=== PATIENT | male | born 1960 | race Caucasian/White ===

== ENCOUNTER 2021-03-22 17:07 | Inpatient (IN) | payer SELFPAY ==
[~2021-03-22] VITALS: Ht 185.4 cm; Wt 113.0 kg
[~2021-03-22 17:07] MED LIST: AMLO2.5T2 PO; CHLO25TA9 PO; FENO48TA16 PO; FENT1PAT17 TP; GABA-585 PO; LISI20TA18 PO; MORP15TA80 PO; POTA99TA PO; PROP1TAB PO
[2021-03-22 17:20] VITALS: BP 175/132
[2021-03-22] MEDS ORDERED: MORPHINE SULFATE 4 MG/ML DISP.SYRIN. IM ONE (17:30)
[2021-03-22] MEDS ORDERED: VANCOMYCIN PER PHARMACY MC PRN (17:45)
[2021-03-22] MEDS ORDERED: MORPHINE SULFATE 4 MG/ML DISP.SYRIN. IV PRN (17:45)
[2021-03-22] MEDS ORDERED: ZOLPIDEM 5 MG TABLET. PO PRN (17:45)
[2021-03-22] MEDS ORDERED: ACETAMINOPHEN 500 MG TABLET PO PRN (17:45)
[2021-03-22] MEDS ORDERED: PRED-220 (17:46)
[2021-03-22] MEDS ORDERED: DEXTROSE 50% 25 GM / 50ML DISP.SYRIN. IV PRN ×2 (18:00→22:15)
[2021-03-22] MEDS ORDERED: ENOXAPARIN 40 MG/0.4 ML SYRINGE. SQ SCH (18:15)
[2021-03-22] MEDS: MORPHINE SULFATE 4 MG/ML DISP.SYRIN. IV PRN ×2 (18:25→21:43)
[2021-03-22] MEDS ORDERED: VANCOMYCIN 2 GM in IV NORMAL SALINE 500ML 500 ML IV ONE (19:00)
[2021-03-22 19:20] VITALS: BP 154/95
[2021-03-22] MEDS: IV NORMAL SALINE 1,000ML 1,000 ML IV SCH (19:30)
--- NOTE | 2021-03-22 20:45 | EKG ---
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
[2021-03-22 21:30] LABS: BASO % 0 % (0-3); EOS % 0 % (0-3); HEMATOCRIT 44.6 % (39.0-53.0); HEMOGLOBIN 14.6 g/dL (13.0-17.5); LYMPH # 0.4 x10^3/uL (1.0-4.8); LYMPH % 4 % (24-48); MEAN CORPUSCULAR HEMOGLOBIN 28 pg (25-35); MEAN CORPUSCULAR HGB CONC 33 g/dL (31-37); MEAN CORPUSCULAR VOLUME 84 fL (79-100); MONO # 0.4 x10^3/uL (0.0-1.1); MONO % 4 % (0-9); NEUT # 9.7 x10^3uL (1.8-7.7); NEUT % 92 % (31-73); PLATELET COUNT 297 x10^3/uL (140-400); RED CELL DISTRIBUTION WIDTH 16.1 % (11.5-14.5); WHITE BLOOD COUNT 10.5 x10^3/uL (4.0-11.0)
[2021-03-22 21:56] LABS: ALBUMIN 2.2 g/dL (3.4-5.0); ALBUMIN/GLOBULIN RATIO 0.6 (1.0-1.7); CALCIUM 8.3 mg/dL (8.5-10.1); CREATININE 1.5 mg/dL (0.7-1.3); GFR 47.7; POTASSIUM 4.8 mmol/L (3.5-5.1); TOTAL BILIRUBIN 0.9 mg/dL (0.2-1.0); TOTAL PROTEIN 6.2 g/dL (6.4-8.2)
[2021-03-22] MEDS ORDERED: METOPROLOL TART IMMED RELEASE 50 MG TABLET PO ONE (22:15)
[2021-03-22] MEDS ORDERED: INSULIN LISPRO 300 UNITS/3 ML VIAL. SQ SCH (22:30)
[2021-03-22] MEDS ORDERED: INSULIN LISPRO 300 UNITS/3 ML VIAL. SQ ONE (22:45)
[2021-03-22] MEDS ORDERED: PIP/TAZO PER PHARMACY MC PRN (22:45)
[2021-03-23] VITALS: BP 104/73
[2021-03-23] MEDS: PIPERACILLIN/TAZOBACTAM 3.375 GM in IV NORMAL SALINE 50ML 50 ML IV SCH ×3 (00:15→12:30)
[2021-03-23] MEDS: INSULIN LISPRO 300 UNITS/3 ML VIAL. SQ PRN ×2 (00:16→05:00)
[2021-03-23 01:25] LABS: BILIRUBIN,URINE NEG (NEG); CLARITY,URINE CLEAR; COLOR,URINE YELLOW; GLUCOSE,URINE >=1000 mg/dL (NEG); NITRITE,URINE NEG (NEG); UROBILINOGEN,URINE 0.2 mg/dL (0.2 mg/dL)
[2021-03-23 01:27] LABS: BACTERIA,URINE 0 /HPF (0-FEW); SQUAMOUS EPITHELIAL CELL,UR FEW /LPF; WBC,URINE 0 /HPF (0-4)
[2021-03-23] MEDS: IV NORMAL SALINE 1,000ML 1,000 ML IV SCH (01:35)
[2021-03-23] MEDS: MORPHINE SULFATE 4 MG/ML DISP.SYRIN. IV PRN ×2 (05:00→07:56)
[2021-03-23] MEDS ORDERED: VANCOMYCIN 1.75 GM in IV NORMAL SALINE 500ML 500 ML IV SCH (08:00)
[2021-03-23] MEDS ORDERED: INSULIN LISPRO 300 UNITS/3 ML VIAL. SQ SCH (08:00)
--- NOTE | 2021-03-23 08:57 | RAD ---
EXAM: Chest, single view. HISTORY: Shortness of air. COMPARISON: None. FINDINGS: A frontal view of the chest is obtained. There is bilateral lower lobe atelectasis. There i s no consolidation, pleural effusion or pneumothorax. There is a prominent cardiac silhouette. IMPRESSION: Bilateral lower lobe atelectasis and prominent cardiac silhouette. Electronically signed by: Yuly Villela MD (03/23/2021 8:54 AM) [id number]
[2021-03-23] MEDS ORDERED: LACTOBACILLUS RHAMNOSUS GG 1 CAPSULE. PO SCH (09:00)
--- NOTE | 2021-03-23 09:01 | RAD ---
EXAM: Bilateral lower extremity arterial Doppler sonogram. HISTORY: Hypertension. Diabetes. Lower extremity wounds. Peripheral vascular disease. TECHNIQUE: Leung scale and color Doppler sonographic imaging of the lower extremity arteries with spec tral waveform analysis was performed. COMPARISON: None. FINDINGS: There is no identifiable flow within the left peroneal artery. There are normal triphasic w aveforms and peak systolic velocities throughout the remainder the lower extremity arteries. IMPRESSION: 1. No identifiable flow within the left peroneal artery. This suggests segmental arterial occlusion o r near complete occlusion. 2. No additional evidence of hemodynamically significant stenosis or occlusion involving the remainde r of the bilateral lower extremity arteries. Electronically signed by: Yuly Villela MD (03/23/2021 8:59 AM) [id number]
[2021-03-23] MEDS ORDERED: CLOPIDOGREL BISULFATE 75 MG TABLET PO SCH (09:30)
[2021-03-23] MEDS ORDERED: ASPIRIN ENTERIC COATED 81 MG TABLET.DR. PO ONE (09:30)
--- NOTE | 2021-03-23 10:05 | PDOC2 ---
CARO CRAVEN MANAGER FLOOR 03/23/21 1005: CARDIAC CONSULT DATE OF CONSULT DOS: DATE: 03/23/21 TIME: 09:50 REASON FOR CONSULT Reason for Consult Elevated troponin, PVD REFERRING PHYSICIAN Referring Physician Dr. Black SOURCE Source: Chart review, Patient HPI History of Present Illness This is a 60 yo male who presented secondary to failed outpatient treatment of LE wounds. Patient reports he developed rash on LE approximately 1 month ago. Has progressively worsened and evening developed redness, erythema, and open wounds. Has been treated on an outpatient basis for the last couple of weeks. Has significant excoriation of bilateral LE. Initial labs noted with significant hyperglycemia, MARLENI, lactic acidosis, and mild troponin elevation, which prompted this consult. He denies any chest pain, dizziness, diaphoresis, or SOA. Has not routinely seen provider in the last 3 years. PAST MEDICAL HISTORY Cardiovascular: HTN Heme/Onc: Cancer (colorectal ) Endocrine: Diabetes PAST SURGICAL HISTORY Past Surgical History: Cholecystectomy, Colon Resection FAMILY HISTORY Family History: Hypertension SOCIAL HISTORY ALCOHOL: none Drugs: None Lives: with Family CURRENT MEDICATIONS Current Medications Current Medications Morphine Sulfate (Morphine 4mg Syringe) 4 mg 1X ONCE IM Last administered on 03/22/21at 17:30; Start 03/22/21 at 17:30; Stop 03/22/21 at 17:32; Status DC Morphine Sulfate (Morphine 4mg Syringe) 4 mg PRN Q2HR PRN IV PAIN Last adminis tered on 03/23/21at 07:56; Start 03/22/21 at 17:30 Zolpidem Tartrate (Ambien) 5 mg PRN QHS PRN PO INSOMNIA, MAY REPEAT IN 1HR Last administered on 03/22/21at 21:43; Start 03/22/21 at 17:45 Morphine Sulfate (Morphine 4mg Syringe) 4 mg PRN Q2HR PRN IV PAIN; Start 03/22/21 at 17:45; Status Cancel Acetaminophen (Tylenol) 500 mg PRN Q6HRS PRN PO MILD PAIN / TEMP > 100.3'F; Start 03/22/21 at 17:45 Vancomycin HCl (Vanco Per Pharmacy) 1 each PRN DAILY PRN MC SEE COMMENTS Last administered on 03/22/21at 22:17; Start 03/22/21 at 17:45 Insulin Human Lispro (HumaLOG) 0-9 UNITS TIDWMEALS SQ ; Start 03/23/21 at 08:00; Stop 03/22/21 at 22:21; Status DC Dextrose (Dextrose 50%-Water Syringe) 12.5 gm PRN Q15MIN PRN IV SEE COMMENTS; Start 03/22/21 at 18:00; Stop 03/22/21 at 22:22; Status DC Enoxaparin Sodium (Lovenox 40mg Syringe) 40 mg Q24H SQ Last administered on 03/22/21at 18:25; Start 03/22/21 at 18:15 Nifedipine (Procardia Xl) 30 mg DAILY PO Last administered on 03/23/21at 08:50; Start 03/23/21 at 09:00 Nifedipine (Procardia Xl) 30 mg 1X ONCE PO Last administered on 03/22/21at 18:25; Start 03/22/21 at 18:15; Stop 03/22/21 at 18:16; Status DC Vancomycin HCl 2 gm/Sodium Chloride 500 ml @ 250 mls/hr 1X ONCE IV Last administered on 03/22/21at 19:30; Start 03/22/21 at 19:00; Stop 03/22/21 at 20:59; Status DC Sodium Chloride 1,000 ml @ 150 mls/hr Q6H40M IV Last administered on 03/23/21at 01:35; Start 03/22/21 at 18:15 Vancomycin HCl 1.75 gm/Sodium Chloride 500 ml @ 250 mls/hr Q12H IV Last administered on 03/23/21at 08:51; Start 03/23/21 at 08:00 Vancomycin HCl (Vancomycin Trough Level) 1 each 1X ONCE MC ; Start 03/24/21 at 07:30; Stop 03/24/21 at 07:31 Lactobacillus Rhamnosus (Culturelle) 1 cap BID PO Last administered on 03/23/21at 08:50; Start 03/23/21 at 09:00 Insulin Human Lispro (HumaLOG) 15 units 1X SQ ; Start 03/22/21 at 22:30; Stop 03/22/21 at 22:33; Status DC Metoprolol Tartrate (Lopressor) 50 mg 1X ONCE PO Last administered on 03/22/21at 22:37; Start 03/22/21 at 22:15; Stop 03/22/21 at 22:21; Status DC Insulin Human Lispro (HumaLOG) 0-9 UNITS PRN Q2HR PRN SQ HYPERGLYCEMIA Last administered on 03/23/21at 05:00; Start 03/22/21 at 22:15 Dextrose (Dextrose 50%-Water Syringe) 12.5 gm PRN Q15MIN PRN IV SEE COMMENTS; Start 03/22/21 at 22:15 Insulin Human Lispro (HumaLOG) 15 units 1X ONCE SQ Last administered on 03/22/21at 22:35; Start 03/22/21 at 22:45; Stop 03/22/21 at 22:46; Status DC Piperacillin Sod/ Tazobactam Sod (Zosyn Per Pharmacy) 1 each PRN DAILY PRN MC SEE COMMENTS; Start 03/22/21 at 22:45 Piperacillin Sod/ Tazobactam Sod 3.375 gm/Sodium Chloride 50 ml @ 100 mls/hr Q6HRS IV Last administered on 03/23/21at 05:00; Start 03/23/21 at 00:00 Clopidogrel Bisulfate (Plavix) 75 mg DAILYWBKFT PO ; Start 03/23/21 at 09:30 Aspirin (Aspirin Enteric Coated) 81 mg DAILYWBKFT PO ; Start 03/24/21 at 08:00 Aspirin (Aspirin Enteric Coated) 81 mg 1X ONCE PO ; Start 03/23/21 at 09:30; Stop 03/23/21 at 09:34; Status DC Atorvastatin Calcium (Lipitor) 40 mg QHS PO ; Start 03/23/21 at 21:00 Active Scripts Active Reported Prednisone 10 Mg Tablet 10 DAILY ALLERGIES Allergies: Coded Allergies: No Known Drug Allergies (Unverified , 10/26/15) ROS Review of Systems 14 point ROS conducted with pertinent positives noted above in HPI PHYSICAL EXAM General: Alert, Oriented X3, Cooperative, No acute distress HEENT: Atraumatic Lungs: Clear to auscultation Heart: Regular rate Abdomen: Soft Extremities: Other (LE edema present ) Skin: No significant lesion (drsgs intact to bilateral LE. ) Neuro: Normal speech, Sensation intact Psych/Mental Status: Mental status NL, Mood NL MUSCULOSKELETAL: Osteoarthritic changes both hands VITALS Vital Signs Vital Signs Date Time Temp Pulse Resp B/P (MAP) Pulse Ox O2 Delivery O2 Flow Rate FiO2 03/23/21 08:50 95 104/73 03/23/21 07:56 17 Room Air 03/23/21 05:21 94 03/23/21 00:00 97.6 LABS LABS Laboratory Tests Test 03/22/21 20:57 03/22/21 23:58 03/23/21 00:27 03/23/21 00:44 White Blood Count 10.5 x10^3/uL (4.0-11.0) Red Blood Count 5.30 x10^6/uL (4.30-5.70) Hemoglobin 14.6 g/dL (13.0-17.5) Hematocrit 44.6 % (39.0-53.0) Mean Corpuscular Volume 84 fL (79-100) Mean Corpuscular Hemoglobin 28 pg (25-35) Mean Corpuscular Hemoglobin Concent 33 g/dL (31-37) Red Cell Distribution Width 16.1 % (11.5-14.5) Platelet Count 297 x10^3/uL (140-400) Neutrophils (%) (Auto) 92 % (31-73) Lymphocytes (%) (Auto) 4 % (24-48) Monocytes (%) (Auto) 4 % (0-9) Eosinophils (%) (Auto) 0 % (0-3) Basophils (%) (Auto) 0 % (0-3) Neutrophils # (Auto) 9.7 x10^3uL (1.8-7.7) Lymphocytes # (Auto) 0.4 x10^3/uL (1.0-4.8) Monocytes # (Auto) 0.4 x10^3/uL (0.0-1.1) Eosinophils # (Auto) 0.0 x10^3/uL (0.0-0.7) Basophils # (Auto) 0.0 x10^3/uL (0.0-0.2) Erythrocyte Sedimentation Rate 34 (0-15) Sodium Level 131 mmol/L (136-145) Potassium Level 4.8 mmol/L (3.5-5.1) Chloride Level 97 mmol/L (98-107) Carbon Dioxide Level 22 mmol/L (21-32) Anion Gap 12 (6-14) Blood Urea Nitrogen 35 mg/dL (8-26) Creatinine 1.5 mg/dL (0.7-1.3) Estimated GFR (Cockcroft-Gault) 47.7 BUN/Creatinine Ratio 23 (6-20) Glucose Level 506 mg/dL (70-99) Lactic Acid Level 2.4 mmol/L (0.4-2.0) Calcium Level 8.3 mg/dL (8.5-10.1) Total Bilirubin 0.9 mg/dL (0.2-1.0) Aspartate Amino Transf (AST/SGOT) 23 U/L (15-37) Alanine Aminotransferase (ALT/SGPT) 36 U/L (16-63) Alkaline Phosphatase 143 U/L (46-116) Creatine Kinase 89 U/L (39-308) Troponin I Quantitative 0.105 ng/mL (0-0.055) 0.265 ng/mL (0-0.055) C-Reactive Protein 293.3 mg/L (0-3.3) Total Protein 6.2 g/dL (6.4-8.2) Albumin 2.2 g/dL (3.4-5.0) Albumin/Globulin Ratio 0.6 (1.0-1.7) Glucose (Fingerstick) 510 mg/dL (70-99) Urine Collection Type Unknown Urine Color Yellow Urine Clarity Clear Urine pH 5.5 Urine Specific [place] 1.015 Urine Protein 100 mg/dl (NEG-TRACE) Urine Glucose (UA) >=1000 mg/dL (NEG) Urine Ketones (Stick) Neg mg/dL (NEG) Urine Blood Small (NEG) Urine Nitrite Neg (NEG) Urine Bilirubin Neg (NEG) Urine Urobilinogen Dipstick 0.2 mg/dL (0.2 mg/dL) Urine Leukocyte Esterase Neg (NEG) Urine RBC 6-10 /HPF (0-2) Urine WBC 0 /HPF (0-4) Urine Squamous Epithelial Cells Few /LPF Urine Bacteria 0 /HPF (0-FEW) Test 03/23/21 00:58 03/23/21 02:13 03/23/21 04:09 03/23/21 05:59 Lactic Acid Level 4.7 mmol/L (0.4-2.0) Glucose (Fingerstick) 376 mg/dL (70-99) 291 mg/dL (70-99) Troponin I Quantitative 0.289 ng/mL (0-0.055) Test 03/23/21 06:44 03/23/21 08:34 Glucose (Fingerstick) 163 mg/dL (70-99) 142 mg/dL (70-99) ASSESSMENT/PLAN Assessment/Plan 1. LE cellulitis 2. Lactic acidosis 3. MARLENI 4. Uncontrolled diabetes, II; as per IM 5. Mild troponin elevation; highest 0.28. Most probably type II, demand ischemia in setting of above 6. Sinus tachycardia, reactive to above 7. Hypertensive urgency 8. PAD; arterial duplex with concerns of complete left peroneal artery occlusion as no identifiable flow is note. 9. Arrhythmia; burst of 6-beat NSVT noted this morning on tele. Otherwise SR 10. Noncompliance Recommendations Patient transferring to [facility] TSH, lipids, Mg Will check echo to assess LV systolic function Will plan for LLE arteriogram for further evaluation of arterial flow Ongoing antibiotic therapy, treatment of cellulitis Will followup with patient at [facility] ROSEMARY SÁNCHEZ MD 03/24/21 1218: CARDIAC CONSULT ASSESSMENT/PLAN Assessment/Plan Patient seen and examined 03/23/2021. Agree with WARE FINISHER's assessment and plan. Continue intravenous antibiotics for bilateral lower extremity cellulitis. Arterial duplex scan did not show any major vascular stenosis above the knee. The left peroneal artery showed complete occlusion. Slight troponin elevation probably demand ischemia. Check 2D echo to assess LV systolic function. Agree with transfer to [facility]. Thank you for your consultation CARO CRAVEN APRN Mar 23, 2021 10:05 ROSEMARY SÁNCHEZ MD Mar 24, 2021 12:18
[2021-03-23 10:50] VITALS: BP 135/84
[2021-03-23] MEDS ORDERED: HEPARIN 25,000UTS/250ML PREMIX 250 ML IV PRN (12:15)
[2021-03-23] MEDS ORDERED: HEPARIN for IV BOLUS 10,000 UNIT/10 ML VIAL. IV ONE (12:15)
[2021-03-23] MEDS ORDERED: HEPARIN for IV BOLUS 10,000 UNIT/10 ML VIAL. IV PRN ×3 (12:15)
[2021-03-23] MEDS ORDERED: ATORVASTATIN CALCIUM 20 MG TABLET PO SCH (21:00)
[2021-03-24 00:07] LABS: HEMOGLOBIN A1C 11.8 % (4.8-5.6)
[2021-03-24] MEDS ORDERED: ASPIRIN ENTERIC COATED 81 MG TABLET.DR. PO SCH (08:00)
== END 2021-03-23 14:06 | disposition short-term general hospital (02) | DRG 603 ==
LOC: 1 SOUTH 17:07
PROVIDERS: ADMIT Family Medicine; ATTEND Family Medicine
DX: L03.116 Cellulitis of left lower limb (principal); E87.2 Acidosis; I24.8 Other forms of acute ischemic heart disease; I47.2 Ventricular tachycardia; N17.9 Acute kidney failure, unspecified; I16.0 Hypertensive urgency; E11.65 Type 2 diabetes mellitus with hyperglycemia; I10 Essential (primary) hypertension; L03.115 Cellulitis of right lower limb; Z82.49 Family history of ischemic heart disease and other diseases of the circulatory system; Z91.19 Patient's noncompliance with other medical treatment and regimen; Z90.49 Acquired absence of other specified parts of digestive tract; I49.9 Cardiac arrhythmia, unspecified
CPT/HCPCS: 36415; 71045; 80053; 80061; 81001; 82550; 82947; 83036; 83605; 83735; 84443; 84484; 85025; 85610; 85651; 85730; 86140; 87040; 93005; 93925; J1644; J1650; J1815; J2270; J2543; J3370; J7040; J7030

== ENCOUNTER 2021-04-05 17:25 | Emergency (ER) | payer SELFPAY ==
[2021-04-05] VITALS (7 sets, daily range): BP systolic 111–133; BP diastolic 62–95
[~2021-04-05] VITALS: Ht 170.2 cm; Wt 113.0 kg
[~2021-04-05 17:25] MED LIST changes: +PRED-220
[2021-04-05] MEDS ORDERED: INSULIN REGULAR 100 UNIT/ML 3ML VIAL. SQ ONE (17:45)
[2021-04-05] MEDS ORDERED: INSULIN REGULAR VIAL 100 UNIT in IV NORMAL SALINE 100ML 100 ML IV PRN (17:45)
[2021-04-05] MEDS ORDERED: IV NORMAL SALINE 1,000ML 1,000 ML IV ONE ×2 (17:45→20:00)
--- NOTE | 2021-04-05 17:52 | PHYS DOC ---
Past History Past Medical History: CHF, Diabetes Additional Past Medical Histor: Celulities. cardiac. Past Surgical History: Cholecystectomy Smoking: Non-smoker Alcohol Use: None Drug Use: None General Adult EDM: Chief Complaint: SHORTNESS OF BREATH HPI: HPI: Patient is a 60 year old male who presents via EMS with shortness of breath that began earlier today and significantly worsened after he was visited by his home health nurse. He was recently discharged from [facility] on 04/01 after being treated for cellulitis at which time he was also diagnosed with diabetes and CHF. Patient believes his blood sugars were controlled at discharge but is unable to recall which medication he was discharged with or if he has been compliant with them. Denies cough, nausea, or vomiting. Denies known exposure to COVID-19. Patient has not received COVID-19 vaccination as he previously was too ill to receive it. Patient denies any chest pain. Patient does report some shortness of breath. EMS reports patient with increased work of breathing upon their arrival requiring supplemental O2. Review of Systems: Review of Systems: Constitutional: Reports chills. Denies fevers. Eyes: Denies redness or eye pain HENT: Denies nasal congestion or sore throat Respiratory: Reports shortness of breath. Denies cough. Cardiovascular: Denies chest pain or palpitations GI: Reports abdominal pain. Denies nausea, vomiting, or hematochezia. : Denies dysuria or hematuria Musculoskeletal: Denies back pain or joint pain Integument: Denies rash or skin lesions Neurologic: Denies headache, focal weakness or sensory changes Complete systems were reviewed and found to be within normal limits, except as documented in this note. Current Medications: Current Meds: Current Medications Medications (Trade) Dose Ordered Sig/Zahra Start Time Stop Time Status Last Admin Dose Admin Insulin Human Regular (HumuLIN R VIAL) 12 unit 1X ONCE 04/05/21 17:45 04/05/21 17:46 DC Insulin Human Regular 100 unit/ Sodium Chloride 101 ml @ 0 mls/hr CONT PRN PRN 04/05/21 17:45 Sodium Chloride 1,000 ml @ 1,000 mls/hr 1X ONCE 04/05/21 17:45 04/05/21 18:44 Allergies: Allergies: Allergies Coded Allergies Type Severity Reaction Last Updated Verified No Known Drug Allergies 10/26/15 No Physical Exam: PE: Constitutional: Well developed, obese, pallor, ill appearing HENT: Normocephalic, atraumatic. Dry oral mucosa. Eyes: Conjunctiva normal, no discharge Neck: Normal range of motion, no tenderness, supple Lungs & Thorax: Tachypneic. Equal chest rise and fall Cardiovascular: Tachcardia, CR >3 sec at fingertips Abdomen: Soft, no tenderness Skin: Pallor, warm, dry, no erythema, no rash Extremities: No tenderness, ROM intact, 2+ BLE edema Neurologic: Alert and oriented X 3, normal motor function, normal sensory function, no focal deficits noted Psychologic: Affect normal, judgment normal Current Patient Data: Vital Signs: Vital Signs Date Time Temp Pulse Resp B/P (MAP) Pulse Ox O2 Delivery O2 Flow Rate FiO2 04/05/21 17:28 96.0 121 28 132/95 100 Room Air EKG: EKG: @1740 Sinus tachycardia at 121bpm, NO ST elevation, frequent PVCs noted, t wave inversions noted to I and aVL, wandering baseline primarily in V5, QRS 114ms, QT/QTc 334/477ms compared to prior EKG per [facility] from 03/22/21 which appears similar with exception of lack of frequent PVCs, otherwise stable Radiology/Procedures: Radiology/Procedures: PROCEDURE: PORTABLE CHEST 1V AP chest x-ray HISTORY: Dyspnea. COMPARISON: Chest x-ray March 23, 2021. FINDINGS: Overlying cardiomegaly is stable. Mediastinal silhouette is normal. No pneumothorax. No effusions. There is some improved aeration of the left lower lobe prior exam with some persistent opacity along the lateral lower lobe partially obscuring the diaphragm remaining. The right lower lobe is clear. Bones are unremarkable. IMPRESSION: Improved aeration at the lung bases since the prior exam, with mild residual atelectasis/infiltrate of the lateral basilar left lower lobe. Electronically signed by: Antonio Long MD (04/05/2021 6:26 PM) [facility] Heart Score: C/O Chest Pain: No HEART Score for Chest Pain: HEART Score for Chest Pain Response (Comments) Value History Slighlty/Non-Suspicious 0 ECG Normal 0 Age >45 - < 65 1 Risk Factors >3 Risk Factors or Hx CAD 2 Troponin >3 x Normal Limit 2 Total 5 Risk Factors: Risk Factors: DM, Current or recent (<one month) smoker, HTN, HLP, family history of CAD, obesity. Risk Scores: Score 0 - 3: 2.5% MACE over next 6 weeks - Discharge Home Score 4 - 6: 20.3% MACE over next 6 weeks - Admit for Clinical Observation Score 7 - 10: 72.7% MACE over next 6 weeks - Early Invasive Strategies Course & Med Decision Making: Course & Med Decision Making Pertinent Labs and Imaging studies reviewed. (See chart for details) 60 year old man presents via EMS with shortness of breath and hyperglycemia co ncerning for DKA. Hx of recent diagnosis of DM and CHF and has been noncompliant with medicine upon recent discharge from [facility]. Patient appears clinically dry. Upon arrival patient's glucose is 341, pH 7.32, pCO2 10, Bicarb 5, Hemoglobin 4.4, troponin 1.396, and BNP 83294. Started on IV fluids, insulin bolus and gtt. 2 units of blood ordered with plan to give bumex between doses. INR elevated and vitamin K ordered. CXR stable. Cannot fully exclude COVID-19. COVID testing pending. Patient also meeting septic shock criteria with SIRS of leukocytosis and elevated HR with lactic acid of 14 and presumed infection. UA pending. Empiric antibiotics given. IVF bolus of 2L based on IBW provided. Discussed case with Dr. Pennington (Cardiology) who is in agreement with consultation. In agreement with holding ASA and heparin at this time. 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 Discussed with Dr. Rodriguez(hospitalist at [facility]) who is in agreement with transfer for admission. Discussed findings and plan with patient, who acknowledges understanding and agreement. COVID-19 CRITERIA: The patient was evaluated during the global COVID-19 pandemic, and that diagnosis was suspected/considered upon their initial presentation. Their evaluation, treatment and testing was consistent with current guidelines for patients who present with complaints or symptoms that may be related to COVID-19. Jayla Disclaimer: Jayla Disclaimer: This electronic medical record was generated, in whole or in part, using a voice recognition dictation system. Departure Departure: Impression: Primary Impression: DKA (diabetic ketoacidosis) Qualified Codes: E13.10 - Other specified diabetes mellitus with keto acidosis without coma Additional Impressions: Severe anemia Lactic acidosis Renal insufficiency NSTEMI (non-ST elevated myocardial infarction) Suspected 2019 novel coronavirus infection Septic shock Disposition: 02 [facility] ([facility]- Dr. Rodriguez accepting) Condition: CRITICAL Referrals: TITO WOOD MD (PCP) COVID-19 Assessment COVID-19 Patient Risks: Age 65 or older: No Sign of co-morbidity: Yes Exp to person + for COVID: No Exp to PUI: No Travel from affected area: No Lower respiratory symptoms: Yes Fever: No Other: Yes PPE Use: Full PPE with N95 mask or PAPR: Yes Critical Care Time Critical care time was 45 minutes which includes time at bedside, spent in discussion of patient's care with specialists and/or family members, with interpretation of laboratory and/or radiological studies and is exclusive of procedures. Sepsis Assessment Date and Time of Assessment Date: Apr 05, 2021 Time: 19:00 Fluid Challenge: Is the fluid challenge complet: No IBW Target Volume Used: Yes BMI > 30: Yes Vital Signs Vital Signs Vital Signs Date Time Temp Pulse Resp B/P (MAP) Pulse Ox O2 Delivery O2 Flow Rate FiO2 04/05/21 20:00 96.8 112 41 133/95 04/05/21 19:26 100 Room Air Temperature Source: Oral Respirations Respiratory Effort: Accessory muscles, Shortness of air, Labored Respiratory Pattern: Tachypnea Cardiovascular Pulse Rhythm: Irregular (tachycardia) Heart: S1 and S2 normal Lung Sounds Breath Sounds: Diminished Capillary Refill Capillary Refill: Rt Hand > 3 seconds Peripheral Pulse Pulse Location: Radial Pulse Strength: Normal (2+) Pulse Assessment Method: Palpation Integumentary Skin: Dry, No Rashes, Cool Skin Moisture: Dry Skin Turgor: Normal Skin Color: warm, dry Fingernail Color: WNL LUIS CARLOS RICHEY DO Apr 05, 2021 17:52
[2021-04-05 17:56] LABS: BASO # 0.1 x10^3/uL (0.0-0.2); BASO % 0 % (0-3); EOS % 0 % (0-3); LYMPH # 1.7 x10^3/uL (1.0-4.8); LYMPH % 8 % (24-48); MEAN CORPUSCULAR HEMOGLOBIN 28 pg (25-35); MEAN CORPUSCULAR HGB CONC 29 g/dL (31-37); MEAN CORPUSCULAR VOLUME 97 fL (79-100); MONO # 0.9 x10^3/uL (0.0-1.1); MONO % 5 % (0-9); NEUT # 17.4 x10^3uL (1.8-7.7); NEUT % 87 % (31-73); PLATELET COUNT 633 x10^3/uL (140-400); RED BLOOD COUNT 1.55 x10^6/uL (4.30-5.70); RED CELL DISTRIBUTION WIDTH 18.6 % (11.5-14.5); WHITE BLOOD COUNT 20.1 x10^3/uL (4.0-11.0)
[2021-04-05 18:03] LABS: CALCIUM 7.7 mg/dL (8.5-10.1); CREATININE 1.9 mg/dL (0.7-1.3); GFR 36.3; POTASSIUM 4.2 mmol/L (3.5-5.1)
[2021-04-05 18:05] LABS: BGAS PH 7.32 (7.35-7.46)
[2021-04-05 18:07] LABS: HEMOGLOBIN 4.4 g/dL (13.0-17.5)
[2021-04-05 18:08] LABS: HEMATOCRIT 15.1 % (39.0-53.0)
--- NOTE | 2021-04-05 18:19 | EKG ---
[address] [address] Test Date: 2021-04-05 Test Time: 17:40:54 Pat Name: RACHEL WALTON Department: Room: Gender: M Lap Hand Tool: : 1960 Requested By: LUIS CARLOS RICHEY Order Number: [id number] Reading MD: Measurements Intervals [place] Rate: 121 P: -51 [place]: 132 QRS: -34 QRSD: 114 T: 118 QT: 334 QTc: 477 Interpretive Statements SINUS TACHYCARDIA COMPLEX(ES) WITH ABERRANT INTRAVENTRICULAR CONDUCTION ABNORMAL LEFT AXIS DEVIATION R-S TRANSITION ZONE IN V LEADS DISPLACED TO THE LEFT LEFT ANTERIOR FASCICULAR BLOCK LVH WITH REPOLARIZATION ABNORMALITY ABNORMAL ECG RI6.02 No previous ECG available for comparison
[2021-04-05 18:20] LABS: ALBUMIN 1.9 g/dL (3.4-5.0); ALBUMIN/GLOBULIN RATIO 0.6 (1.0-1.7); TOTAL BILIRUBIN 0.6 mg/dL (0.2-1.0); TOTAL PROTEIN 4.9 g/dL (6.4-8.2)
--- NOTE | 2021-04-05 18:29 | RAD ---
AP chest x-ray HISTORY: Dyspnea. COMPARISON: Chest x-ray March 23, 2021. FINDINGS: Overlying cardiomegaly is stable. Mediastinal silhouette is normal. No pneumothorax. No eff usions. There is some improved aeration of the left lower lobe prior exam with some persistent opacit y along the lateral lower lobe partially obscuring the diaphragm remaining. The right lower lobe is c lear. Bones are unremarkable. IMPRESSION: Improved aeration at the lung bases since the prior exam, with mild residual atelectasis/ infiltrate of the lateral basilar left lower lobe. Electronically signed by: Antonio Long MD (04/05/2021 6:26 PM) [facility]
[2021-04-05] MEDS ORDERED: BUMETANIDE 1 MG/4 ML VIAL. IVP ONE (19:00)
[2021-04-05] MEDS ORDERED: PHYTONADIONE 10 MG/ML AMPUL. SQ ONE (19:30)
[2021-04-05 19:41] LABS: % BANDS 3 % (0-9); % LYMPHS 4 % (24-48); % SEGS 93 % (35-66); ANISOCYTOSIS MARKED; HYPOCHROMIA SLIGHT; NUCLEATED RBC 1; PLT ESTIMATE INCREASED (ADEQUATE); POLYCHROMASIA MOD; SCHISTOCYTES FEW
[2021-04-05 19:42] LABS: SPHEROCYTES OCC
[2021-04-05] MEDS ORDERED: PIPERACILLIN/TAZOBACTAM 4.5 GM in IV NORMAL SALINE 50ML 50 ML IV ONE (20:30)
[2021-04-05] MEDS ORDERED: PIPERACILLIN/TAZOBACTAM 4.5 GM VIAL IV ONE (20:52)
[2021-04-05] MEDS ORDERED: IV NORMAL SALINE 50ML 50 ML ONE (20:52)
== END 2021-04-05 21:51 | disposition short-term general hospital (02) ==
LOC: ER 17:25
DX: E11.10 Type 2 diabetes mellitus with ketoacidosis without coma (principal); D64.9 Anemia, unspecified; E87.2 Acidosis; N28.9 Disorder of kidney and ureter, unspecified; R65.21 Severe sepsis with septic shock; I21.4 Non-ST elevation (NSTEMI) myocardial infarction; E11.9 Type 2 diabetes mellitus without complications; I50.9 Heart failure, unspecified; Z20.822 Contact with and (suspected) exposure to COVID-19; Z90.49 Acquired absence of other specified parts of digestive tract
CPT/HCPCS: 36415; 36430; 71045; 80053; 82010; 82553; 82803; 82947; 83605; 83735; 83880; 84484; 85007; 85025; 85610; 85730; 86850; 86900; 86901; 86920; 87040; 93005; 96361; 96365; 96367; 96372; 96375; 99291; J1815; J2543; J3430; J3490; J7030; P9016; U0005; U0003